=== PATIENT | male | born 1940 | race Caucasian/White ===

== ENCOUNTER 2020-04-14 08:15 | Day surgery (SDC) | payer MEDICARE ==
[2020-04-14] MEDS ORDERED: CLINDAMYCIN 600 MG/50 ML PREMIX BAG ONE (09:27)
[2020-04-14] MEDS ORDERED: CLINDAMYCIN 600 MG/50 ML PREMIX BAG As Ordered ONE (09:27)
[2020-04-14] MEDS ORDERED: LIDOCAINE 1% SDV 30ML VIAL As Ordered ONE (09:38)
[2020-04-14] MEDS ORDERED: BUPIVACAINE HCL 0.5% 30 ML VIAL As Ordered ONE (09:38)
[2020-04-14] MEDS ORDERED: propofoL 200 MG/20 ML VIAL As Ordered ONE ×2 (10:20→11:09)
[2020-04-14] MEDS ORDERED: LIDOCAINE 2% 100MG/5ML SDV (FOR ANES.) As Ordered ONE (10:20)
--- NOTE | 2020-06-16 12:19 | RO ---
DATE OF SURGERY: 04/14/2020 SURGEON: Merlin Hernandez DPM FIRST SAMPLER: None. PREOPERATIVE DIAGNOSIS: Right second toe gangrene. POSTOPERATIVE DIAGNOSIS: Right second toe gangrene. PROCEDURE: Right second toe amputation. ANESTHESIA: Monitored anesthesia care. PREOPERATIVE INJECTION: 9 cc of a one-to-one mixture of 1% lidocaine plain and 0.5% Marcaine plain. ESTIMATED BLOOD LOSS: Minimal. MATERIALS: 3-0 nylon. INJECTABLES: None. COMPLICATIONS: None. SPECIMENS: Right second toe. INDICATIONS: Kevin Isaacs is a gentleman who was brought to the hospital with gangrene of his second toe. He presents today for amputation. The patient's side and site were identified and marked in the preoperative area. Consent was reviewed and obtained. The risks, complications, and alternatives to the procedure were explained to the patient in detail and all questions were answered. PROCEDURE: The patient was brought to the operating room and placed on the operating room table in the supine position. Monitored anesthesia care was delivered by the anesthesia team. Preoperative injection of 9 cc of a one-to-one mixture of 1% lidocaine plain and 0.5% Marcaine plain were injected to the right foot. The right foot was prepped and draped in normal sterile fashion. The tourniquet was not used during the procedure. An elliptical incision was made around the right second toe and carried through full-thickness. The toe was disarticulated with a #15 blade at the metatarsophalangeal joint. The proximal skin was viable and bleeding. The site was irrigated with normal saline. The second toe was sent off for pathology. The incision was closed using 3-0 nylon. Sterile dressings were applied. The patient was brought to the PACU with vital signs stable and neurovascular status intact. He will be followed up in two days. DESIREE
== END 2020-04-14 12:50 | disposition home or self-care (01) ==
LOC: M SDC 08:15
PROVIDERS: ATTEND Podiatrist Foot & Ankle Surgery
DX: I96 Gangrene, not elsewhere classified (principal); I73.9 Peripheral vascular disease, unspecified; I10 Essential (primary) hypertension; Z79.899 Other long term (current) drug therapy; E78.5 Hyperlipidemia, unspecified; K21.9 Gastro-esophageal reflux disease without esophagitis; Z88.1 Allergy status to other antibiotic agents; Z88.0 Allergy status to penicillin; Z87.891 Personal history of nicotine dependence

== ENCOUNTER → 2020-04-20 | Outpatient (CLI) | payer BC, MEDICARE ==
--- NOTE | 2020-06-04 11:47 | REP ---
BILATERAL LOWER EXTREMITY DUPLEX DOPPLER ARTERIAL ULTRASOUND HISTORY: Claudication, right nonhealing ulcer. TECHNIQUE: Real-time ultrasound evaluation and duplex Doppler interrogation of bilateral lower extremity arterial systems is performed. FINDINGS: KELBY right of 0.9 and left 1.0. There is moderate plaquing diffusely bilaterally. There is no compelling duplex Doppler sonographic evidence of focal stenosis bilaterally. However, there are monophasic waveforms in the right anterior tibial artery both proximally and distally, which would indicate some degree of underlying stenosis. The distal right posterior artery is occluded. Monophasic waveforms are also seen in the distal left anterior tibial artery, which could indicate some degree of underlying stenosis. Otherwise, diffuse biphasic and triphasic waveforms are seen bilaterally. VELOCITY CHART PSV RIGHT (cm/s) PSV LEFT (cm/s) Femoral artery 86.7 120.7 Profunda 73.1 69.9 Proximal SFA 122.1 120.2 Mid-SFA 87.9 103.5 Distal SFA 101.2 122.1 Popliteal 52.9 77.3 Proximal DANNY 66.4 41.9 Tibioperoneal trunk 86.2 64.5 Proximal SALES PRODUCT MANAGER 44.0 95.2 Distal SALES PRODUCT MANAGER Occluded 106.2 Distal DANNY 66.1 51.8 MTDD
== END ==
LOC: M RAD 12:13
PROVIDERS: ATTEND Physician Assistant
DX: I70.213 Atherosclerosis of native arteries of extremities with intermittent claudication, bilateral legs (principal); I70.235 Atherosclerosis of native arteries of right leg with ulceration of other part of foot

== ENCOUNTER → 2020-04-28 | Outpatient (CLI) | payer MEDICARE ==
[~2020-04-28] MED LIST: ISOVUE-300 61% 50ML VIAL As Ordered ONE; LIDOCAINE 1% MDV 20ML VIAL As Ordered ONE; MIDAZOLAM INJ 2MG/2ML VIAL (J2250 PER 1MG) As Ordered ONE; fentaNYL 100 MCG/2 ML INJECTION (J3010) As Ordered ONE; hydrALAZINE 20MG/ML 1ML VIAL (J0360 PER 20MG) As Ordered ONE
--- NOTE | 2020-04-28 10:25 | ROOPDOC ---
[facility] Report Of Operation Report of Operation DATE OF PROCEDURE: 04/28/20 PREPROCEDURE DIAGNOSES: Atherosclerosis of the [place] arteries with claudication and nonhealing wound right second toe POSTPROCEDURE DIAGNOSES: Same PROCEDURE: 1. Ultrasound-guided access left common femoral artery 2. Aortoiliofemoral arteriogram with selection of right superficial femoral artery and right lower extremity runoff 3. Angioplasty right superficial femoral artery and proximal popliteal artery with 7 x 200 [place] balloon 4. Angioplasty right mid, distal popliteal artery and TP trunk with 5 x 100 [place] balloon 5. Cross chronic total occlusion right posterior tibial artery with selection right distal posterior tibial artery and plantar artery arteriogram 6. Angioplasty right posterior tibial artery and plantar artery with 2 x 100 Hector balloon distally and 2.5 x 220 Hector balloon mid proximal. 7. Cross chronic total occlusion right peroneal artery and selection of distal peroneal artery with arteriogram 8. Angioplasty right peroneal artery with 2 x 100 Hector balloon distally and 2.5 x 220 Hector balloon mid and proximal 9. Cross chronic total occlusion right anterior tibial artery and angioplasty with 2.5 x 220 Hector balloon, and 3 x 100 Hector balloon 10. Completion arteriograms 11. Mynx closure left common femoral artery SURGEON: Carlotta Morin MD ANESTHESIA: Local anesthesia 8 mL lidocaine. Moderate intravenous conscious sedation was supervised by Dr. Morin. The patient was independently monitored by registered nurse assigned to the Department of radiology using automated blood pressure, EKG, and pulse oximetry. The detailed sedation record is permanently stored in the hospital information system. The following is the brief sedation record: Start time 07:54, stop time 09:52, Versed 1.5 mg IV, fentanyl 75 g IV, heparin 6000 units IV. CONTRAST: 58 mL Isovue-300 INDICATION FOR PROCEDURE: This is a very pleasant 79-year-old gentleman with severe peripheral vascular disease in the right lower extremity with claudication and a nonhealing wound of the right second toe. Risks benefits and alternatives to an arteriogram and potential intervention were explained to the patient and he is agreeable to proceed. Informed consent was obtained. INTERPRETATION: 1. Although tortuous, the distal aorta, common iliac artery, and external iliac arteries are widely patent bilaterally. The hypogastric arteries are widely patent as well. 2. The common femoral arteries, proximal profunda and proximal as the face are widely patent bilaterally. 3. On the right, the superficial femoral artery is widely patent proximally and mid but has some mild stenosis near Robert's canal distally. I estimate about 20-30%. These are segmental focal stenoses. 4. The right popliteal artery is ectatic and has some focal stenosis in the proximal and mid vessel that I estimate be about 30-40%. 5. The right anterior tibial artery is open at its origin but ectatic and stenotic, and then includes a proximally 4 cm from the origin for approximately 4 cm. It then reconstitutes through collaterals and has good runoff through the rest of the vessel distally to the foot and the dorsal pedis artery which is the only runoff to the foot. The right tibioperoneal trunk has a near occlusion a few millimeters from its origin and then reconstitutes. There is minimal flow into the origin of the peroneal artery, but no flow is noted in the posterior tibial artery from proximal to distal. The peroneal artery occludes near its origin and does not reconstitute. There are a few thready collaterals in the calf medially, but overall the flow to the foot is extremely limited. 6. After angioplasty of the tibioperoneal trunk, popliteal artery and superficial femoral artery, there was widely patent flow with no significant residual stenosis. No dissection embolization or extravasation were noted. No stents were placed. 7. After crossing the chronic total occlusion in the right posterior tibial artery, and crossing into the distal plantar vessel in the foot, distal arteriogram confirmed we were in the true lumen and no extravasation was present. We had successful angioplasty with in-line flow from the proximal calf to the distal foot through the posterior tibial artery and plantar arch. There was some residual plaque in the vessel that is a bit ectatic, but no focal occlusions or stenoses are noted. We did repeat angioplasty multiple times, and there is rapid flow through the vessel, but it is unclear if this will maintain patency over time. 8. After crossing the chronic total occlusion in the right peroneal artery, distal arteriogram confirmed we were in the true lumen and no extravasation was present. We were able to successfully angioplasty the vessel was good in-line flow all the way to the ankle. 9. After crossing the chronic total occlusion in the proximal right anterior tibial artery, multiple angioplasties provided excellent in-line flow was rapid all the way to the distal foot. No dissection, embolization, or extravasation were noted. 10. At case close, the patient had in-line 3 vessel runoff to the right foot with palpable pulses at the DP and PT vessels. REPORT OF OPERATION: The patient was brought to the angiographic suite in stable condition. His bilateral groins were prepped and draped in a sterile fashion. A timeout was performed. Sedation was administered without complication. Local anesthesia was administered to skin and subcutaneous tissue over the left common femoral artery and a microneedle was used to access the artery under ultrasound guidance. A wire was passed through this access and the needle was removed. A 4 Kittitian sheath was placed and flushed with saline. We advanced a stiff Glidewire and a flushing catheter into the distal aorta. Aortoiliofemoral arteriograms were performed. Please see interpretation above. We then went up and over the bifurcation with the catheter and the Glidewire. We selected the right common femoral artery and superficial femoral artery. Right lower extremity runoff was performed. Please see interpretation above. We then advanced the Glidewire into the distal popliteal artery under fluoroscopic guidance. A 90 cm 6 Kittitian sheath was exchanged with the tip at Robert's canal. The sheath was flushed with saline. 5000 units of heparin was given by our nurses and allowed circulate. We then angioplasty the distal superficial femoral artery and proximal mid popliteal artery with a 7 x 200 [place]lip balloon for three-minute inflations. Following this, there was widely patent flow with no dissection embolization or extravasation noted. We then exchange the balloon for a 5 x 100 [place]lip balloon to angioplasty the proximal tibial peroneal trunk and the distal popliteal artery. Three-minute inflations were performed. Afterwards, there was widely patent flow through the distal SFA, popliteal artery, and the tibioperoneal trunk proximally. No dissection embolization or extravasation were noted. We then advanced the 6 Kittitian sheath to the distal popliteal artery over stylette. Sheath was flushed with saline. He exchange the wire for an O18 Glidewire advantage. We then spent quite a bit of time trying to access the origin of the posterior tibial artery, which was not visible. Eventually, I was able to enter the artery, and advance the wire with a [place] catheter down to the distal posterior tibial artery. Contrast injection confirmed we were in the true lumen, but no flow to the foot was noted. I then spent quite a bit of time trying to advance the wire across the ankle into the distal foot into the plantar vessels. We did angioplasty length of the posterior tibial artery with a 2.5 x 220 Hector balloon for multiple three-minute inflations. This provided inflow, but we still needed outflow. We then eventually were able to navigate the wire without both crossing catheter into the plantar vessels. We selected a 2 x 100 Hector balloon and did multiple angioplasties into the plantar vessels until we had outflow into the distal foot. Following this, there was rapid flow through the posterior tibial artery into the foot. We then navigated the wire into the origin of the peroneal artery and spent quite a bit of time trying to cross through the chronically occluded vessel. Eventually, we were able to get onto the ankle, and a contrast injection confirmed we were in the true lumen and no extravasation was noted. Distally, we used a 2 x 100 Hector balloon to angioplasty, and then replaced this with a 2.5 x 220 Hector balloon and multiple three-minute inflations along the length of vessel were performed. Following this, we now had 2 vessel in-line runoff to the foot. An additional thousand units of heparin was given and allowed circulate. We then navigated the wire into the anterior tibial vessel. It was challenging to cross the short occlusion in the proximal vessel, but eventually we're able to get through into the true lumen distally. We first angioplasty with a 2.5 x 220 Hector balloon, and then we replace this with a 3 x 100 Hector balloon due to residual stenosis and plaque of approximate 50% in the area of total occlusion. After three-minute inflations with the larger balloon, there was widely patent flow through the anterior tibial artery which was brisk into the the foot and the plantar vessels. The patient went from limited intermittent flow through one- vessel to the foot to 3 vessel in-line flow runoff to the foot. Hopefully this will be adequate to help him heal his wounds. He has palpable pulses at the DP and PT following angioplasty. This concluded the procedure. The sheath was exchanged over an O35 Glidewire for a short 6 Kittitian sheath and flushed with saline. We then depleted Mynx closure device under fluoroscopic guidance with good hemostasis. Pressure was held for 5 minutes and sterile dressings were applied. The patient was then taken to recovery in stable condition. He tolerated the procedure and the sedation well. ESTIMATED BLOOD LOSS: Approximately 5 mL. COMPLICATIONS: None. PLAN: Okay to resume home medications including Xarelto. No strenuous exercise or lifting more than 5 pounds for 48 hours. Okay to ambulate around the home and go up and down stairs. We will see the patient back in a week to check his perfusion. Hopefully, now that he has palpable pulses in the right foot, he will be able to heal his right second toe. We appreciate the opportunity to p articipate in the care of this patient. CARLOTTA MORIN MD Apr 28, 2020 10:25
[2020-04-28 14:00] VITALS: BP 168/70
== END ==
LOC: M IRPRO 06:25
PROVIDERS: ATTEND Surgery Vascular Surgery
DX: I70.211 Atherosclerosis of native arteries of extremities with intermittent claudication, right leg (principal); I70.235 Atherosclerosis of native arteries of right leg with ulceration of other part of foot; L97.518 Non-pressure chronic ulcer of other part of right foot with other specified severity; I70.92 Chronic total occlusion of artery of the extremities; I10 Essential (primary) hypertension; Z79.01 Long term (current) use of anticoagulants; Z88.0 Allergy status to penicillin; Z88.1 Allergy status to other antibiotic agents; Z88.8 Allergy status to other drugs, medicaments and biological substances; Z91.030 Bee allergy status
CPT/HCPCS: 37224; 37228; 37232; 75710; 99152; 99153; C1725; C1729; C1760; C1769; C1887; C1894; J0360; J1644; J2250; J3010; Q9967

== ENCOUNTER → 2020-05-27 | Outpatient (CLI) | payer MEDICARE ==
--- NOTE | 2020-06-10 16:49 | REP ---
BILATERAL LOWER EXTREMITY ARTERIAL DOPPLER ULTRASOUND HISTORY: Atherosclerosis with intermittent claudication bilateral legs. SONOGRAPHIC FINDINGS: Ankle brachial indices are measured 1.0 on the right and 1.2 on the left. These values are normal. In the right lower extremity, flow is reversed in the distal posterior tibial artery. Flow is absent in the proximal posterior tibial artery consistent with occlusion. No other evidence of significant stenosis. Biphasic arterial Doppler waveforms are noted throughout the lower extremities bilaterally. On the left, there is a decreased overall flow in the distal posterior tibial artery. High velocity flow is seen in the larger dominant anterior tibial artery. Heavily calcification atherosclerotic changes are seen. VELOCITY CHART BILATERAL LOWER EXTREMITIES RIGHT (cm/s) LEFT (cm/s) CVA 99 91 Profunda 83 96 Proximal SFA 85 87 Mid SFA 98 91 Distal SFA 94 83 Popliteal artery 128 81 Proximal DANNY 87 43 Tibioperoneal trunk 72 41 Proximal GUEST SERVICE MANAGER No flow seen 71 Distal GUEST SERVICE MANAGER Reversed 73 80 Distal DANNY 81 31 MTDD
== END ==
LOC: M RAD 07:19
PROVIDERS: ATTEND Physician Assistant
DX: I70.213 Atherosclerosis of native arteries of extremities with intermittent claudication, bilateral legs (principal)

== ENCOUNTER → 2020-08-13 | Outpatient (CLI) | payer MEDICARE ==
--- NOTE | 2020-08-13 13:38 | REP ---
INDICATION: ATHSCL RAMONA ARTERIES W/ CALUDICATION W/ RT ULCER. COMPARISON: Comparison study May 27, 2020.. TECHNIQUE: Bilateral lower extremity arterial Doppler ultrasound. FINDINGS: Ankle brachial indices are measured at 0.88 on the right and 0.88 on the left. A 3.1 cm Raman's cyst is seen on the left and a probable knee joint effusion is noted on the right. Extensive plaquing is observed bilaterally. In the right in the right lower extremity monophasic waveforms are noted in the distal anterior and posterior tibial arteries. The proximal posterior tibial artery on the right is occluded. A and proximal anterior tibial artery stenosis is observed with 9.6-1 velocity ratio. Multilevel stenotic and occlusive changes are noted in the posterior tibial artery on the right distal to this. On the left, the distal posterior tibial artery is occluded with revascularized reversed flow. A 16-1 velocity ratio stenosis is observed in the proximal anterior tibial artery on the left and a 3.4-1 velocity ratio stenosis is seen in the proximal posterior tibial artery on the left. Right lower extremity arterial Doppler velocity chart: Right LINE HAUL OWNER OPERATOR PSV 78 cm/S Profundal 90 Proximal SFA 102 Mid SFA 84 Distal SFA 129 Popliteal 77 Proximal DANNY 50/480 Tibial-peroneal trunk 92 Proximal GRE TUTOR occluded Distal GRE TUTOR 35 reversed flow Distal DANNY 37 Left lower extremity arterial Doppler velocity chart: Left LINE HAUL OWNER OPERATOR PSV 117 cm/S Profundal 96 Proximal SFA 91 Mid SFA 96 Distal SFA 93 Popliteal 78 Proximal DANNY 37/609 Tibial-peroneal trunk 49 Proximal GRE TUTOR 168 Distal GRE TUTOR occluded/revascularized reversed flow Distal DANNY 29 . IMPRESSION: Extensive atherosclerotic changes as noted above. <Electronically signed by Joey Akers > 08/13/20 [id number]
== END ==
LOC: M RAD 10:48
PROVIDERS: ATTEND Physician Assistant
DX: I70.213 Atherosclerosis of native arteries of extremities with intermittent claudication, bilateral legs (principal); I70.235 Atherosclerosis of native arteries of right leg with ulceration of other part of foot; Z87.891 Personal history of nicotine dependence

== ENCOUNTER → 2022-07-11 | Outpatient (CLI) | payer MEDICARE | LOC: M PLAIMG 09:50 | PROVIDERS: ATTEND Orthopaedic Surgery | DX: Z01.818 Encounter for other preprocedural examination (principal); M51.36 Other intervertebral disc degeneration, lumbar region ==

== ENCOUNTER → 2024-05-05 | Outpatient (REF) | payer MEDICARE | LOC: M LAB REF 16:12 | PROVIDERS: ATTEND Podiatrist Foot & Ankle Surgery | DX: L97.529 Non-pressure chronic ulcer of other part of left foot with unspecified severity (principal); I73.89 Other specified peripheral vascular diseases ==

== ENCOUNTER → 2024-05-22 | Outpatient (REF) | payer MEDICARE | LOC: M LAB REF 13:22 → EEVIPCON 13:22 | PROVIDERS: ATTEND Podiatrist Foot & Ankle Surgery | DX: I96 Gangrene, not elsewhere classified (principal); M86.9 Osteomyelitis, unspecified ==